=== PATIENT | female | born 1970 | race African-American/Black ===

== ENCOUNTER → 2020-09-15 | Day surgery (SDC) | payer OTHER ==
[~2020-09-15] MED LIST: HCTZ25 MG PO; METOPROLOL SUCC50 MG PO; NP THYROID30 MG PO; PANTOPRAZOLE SO40 MG PO
[2020-09-15 07:48] LABS: HCG (URINE) SCREEN NEGATIVE (NEGATIVE)
[2020-09-15 08:17] LABS: HGB 14.2 g/dl (12.5-16.0); MCH 27.4 pg (25.0-31.0); MPV 10.6 fL (6.0-9.5); RBC 5.18 M/uL (4.20-5.40); RDW 13.8 % (11.5-14.0); WBC 10.6 K/uL (4.0-10.5)
[2020-09-15 08:27] LABS: ALBUMIN 3.5 g/dL (3.4-5.0); BILIRUBIN - TOTAL 0.4 mg/dL (0.2-1.0); BUN/CREAT RATIO (CALC) 19.3 RATIO; CREATININE 0.83 mg/dL (0.51-0.95); GLOBULIN (CALCULATION) 4.3 g/dL; TOTAL PROTEIN 7.8 g/dL (6.4-8.2)
== END | disposition home or self-care (01) ==
LOC: FAS 07:34
PROVIDERS: Surgery
DX: Z12.11 Encounter for screening for malignant neoplasm of colon (principal); I10 Essential (primary) hypertension; Z79.899 Other long term (current) drug therapy; Z20.822 Contact with and (suspected) exposure to COVID-19
CPT/HCPCS: 36415; 80053; 84703; J2250; J2704; J7120